=== PATIENT | female | born 1955 | race Caucasian/White ===

== ENCOUNTER → 2016-07-10 | Outpatient (CLI) | payer OTHER | END | disposition home or self-care (01) | LOC: CFH 14:33 | PROVIDERS: ATTEND Internal Medicine Critical Care Medicine | DX: R06.02 Shortness of breath (principal); Z72.0 Tobacco use; Z12.2 Encounter for screening for malignant neoplasm of respiratory organs; R91.1 Solitary pulmonary nodule | CPT/HCPCS: 71020; G0297 ==

== ENCOUNTER → 2016-08-25 | Outpatient (CLI) | payer OTHER | END | disposition home or self-care (01) | LOC: CARD 14:59 | PROVIDERS: ATTEND Internal Medicine Critical Care Medicine | DX: R06.02 Shortness of breath (principal) | CPT/HCPCS: 94060; 94726; 94729 ==

== ENCOUNTER → 2018-06-13 | Outpatient (CLI) | payer MEDICARE | END | disposition home or self-care (01) | LOC: CFH 14:39 | PROVIDERS: ATTEND Registered Nurse | DX: M47.816 Spondylosis without myelopathy or radiculopathy, lumbar region (principal); M48.061 Spinal stenosis, lumbar region without neurogenic claudication | CPT/HCPCS: 72148 ==

== ENCOUNTER → 2018-06-28 | Outpatient (CLI) | payer MEDICARE | END | disposition home or self-care (01) | LOC: CFH 11:57 | PROVIDERS: ATTEND Internal Medicine Critical Care Medicine | DX: Z12.2 Encounter for screening for malignant neoplasm of respiratory organs (principal); I70.90 Unspecified atherosclerosis; R91.1 Solitary pulmonary nodule; F17.210 Nicotine dependence, cigarettes, uncomplicated | CPT/HCPCS: G0297 ==

== ENCOUNTER → 2018-09-27 | Outpatient (CLI) | payer MEDICARE, MEDICAID | END | disposition home or self-care (01) | LOC: CFH 12:21 | PROVIDERS: ATTEND Nurse Practitioner Family | DX: R91.1 Solitary pulmonary nodule (principal) | CPT/HCPCS: 71250 ==

== ENCOUNTER 2018-11-29 10:59 | Outpatient (CLI) | payer MEDICAID, MEDICARE | END 2018-11-29 23:59 | disposition home or self-care (01) | LOC: CFH 10:59 | PROVIDERS: ATTEND Internal Medicine Cardiovascular Disease | DX: I34.0 Nonrheumatic mitral (valve) insufficiency (principal); I10 Essential (primary) hypertension; E10.9 Type 1 diabetes mellitus without complications; F17.210 Nicotine dependence, cigarettes, uncomplicated | CPT/HCPCS: 78452; 93017; 93306; A9502; J2785 ==

== ENCOUNTER 2019-04-06 08:45 | Day surgery (SDC) | payer MEDICARE ==
[2019-04-04 15:41] LABS: BASOPHILS # (AUTO) 0.05 x10^3/uL (0-0.1); BASOPHILS % (AUTO) 1 % (0-1); EOSINOPHILS # (AUTO) 0.34 x10^3/uL (0-0.4); EOSINOPHILS % (AUTO) 6 % (1-7); LYMPHOCYTES # (AUTO) 1.91 x10^3/uL (1-3.4); LYMPHOCYTES % (AUTO) 32 % (22-44); MD NO; MEAN CORPUSCULAR HEMOGLOBIN 31.2 pg (27.0-34.8); MEAN CORPUSCULAR VOLUME 94.3 fL (80-100); MEAN PLATELET VOLUME 7.9 fL (7.4-10.4); MONOCYTES # (AUTO) 0.66 x10^3/uL (0.2-0.8); MONOCYTES % (AUTO) 11 % (2-9); NEUTROPHILS # (AUTO) 2.95 x10^3/uL (1.8-6.8); NEUTROPHILS % (AUTO) 50 % (42-75); PLATELET COUNT 200 x10^3/uL (130-400); RED BLOOD COUNT 4.47 x10^6/uL (3.82-5.3); RED CELL DISTRIBUTION WIDTH 13.4 % (9.6-15.2)
[2019-04-04 15:43] LABS: MICROSCOPIC NOT IND
[2019-04-04 15:46] LABS: CULTURE INDICATED? NO
[2019-04-04 15:46] LABS: ALANINE AMINOTRANSFERASE 71 U/L (12-78); ALBUMIN 3.2 g/dL (3.4-5.0); ANION GAP 7 mmol/L (5-15); CALCIUM 8.8 mg/dL (8.5-10.1); CHLORIDE 104 mmol/L (98-107); CREATININE 0.97 mg/dL (0.55-1.02)
[2019-04-04 15:47] LABS: PROTHROMBIN TIME 10.5 Seconds (9.6-11.5)
[2019-04-04 15:48] LABS: ALKALINE PHOSPHATASE 93 U/L (45-117); BILIRUBIN,TOTAL 0.3 mg/dL (0.2-1.0); TOTAL PROTEIN 6.8 g/dL (6.4-8.2)
[~2019-04-06] VITALS: Ht 163.8 cm; Wt 92.1 kg
[~2019-04-06 08:45] MED LIST: ARMO250T2 PO; ASCO10004 PO; ASPI-496 PO; ATOR-2 PO; BACITRACIN 50,000 UNIT ONE; BUPIVACAINE/PF 0.25% ONE; BUPIVACAINE/PF 0.5% ONE; CALC1CAP8 PO; CARV-39 PO; CYAN1TAB29 PO; EPINEPHRINE 1 MG/ML, 1ML ONE; EYE VITAMINS PO; EZET10TA70 PO; FURO20TA3 PO; GLUC1KIT PO; GLUC500T11 PO; HYDR25TA6 PO; INSU100V14 SC; LEVO50TA5 PO; LISI-170 PO; MULT1TAB60 PO; OMEG1CAP39 PO; POTA10TA5 PO; PREG150C PO; THROMBIN 5,000 UNIT VIAL TP ONE; UBID100C24 PO; VANCOMYCIN 1,000 MG ONE; VENL150T PO; [UNRECOGNIZED DRUG - OTHER] PO
[2019-04-06] MEDS ORDERED: LACTATED RINGERS 1,000 ML IV SCH (09:26)
[2019-04-06 09:30] VITALS: BP 114/65
[2019-04-06] MEDS ORDERED: FENTANYL PF 250 MCG/5ML ONE (09:41)
[2019-04-06] MEDS ORDERED: MIDAZOLAM 1 MG/ML, 2ML ONE (09:41)
[2019-04-06] MEDS ORDERED: PROPOFOL 100 ML ONE (09:42)
[2019-04-06] MEDS ORDERED: ACETAMINOPHEN 500 MG TABLET PO ONE (10:00)
[2019-04-06] MEDS ORDERED: GABAPENTIN 300 MG CAPSULE PO ONE (10:00)
[2019-04-06] MEDS ORDERED: OxyconTIN ER 20 MG TAB.ER PO ONE (10:00)
[2019-04-06] MEDS ORDERED: FAMOTIDINE 20 MG TABLET PO ONE (10:00)
[2019-04-06] MEDS ORDERED: DEXAMETHASONE 4 MG/ML, 1ML ONE (12:24)
[2019-04-06] MEDS ORDERED: CEFAZOLIN 1,000 MG ONE (12:25)
[2019-04-06] MEDS ORDERED: SUCCINYLCHOLINE 20 MG/ML, 10ML ONE (13:37)
[2019-04-06] MEDS ORDERED: PROPOFOL 10 MG/ML, 20ML ONE (13:37)
[2019-04-06] MEDS ORDERED: ROCURONIUM 10MG/ML,5ML ONE (13:37)
[2019-04-06] MEDS ORDERED: ONDANSETRON 2MG/ML, 2ML ONE (13:37)
[2019-04-06] MEDS ORDERED: MEPERIDINE/PF 25MG/ML,1ML IVPush PRN (14:00)
[2019-04-06] MEDS ORDERED: METOPROLOL 1 MG/ML, 5ML IV PRN (14:00)
[2019-04-06] MEDS ORDERED: hydrALAzine 20 MG/ML, 1ML IV PRN (14:00)
[2019-04-06] MEDS ORDERED: ONDANSETRON 2MG/ML, 2ML IV PRN ×2 (14:00→16:30)
[2019-04-06] MEDS ORDERED: PROMETHAZINE 25 MG/ML, 1ML IV PRN (14:00)
[2019-04-06] MEDS ORDERED: OXYcodone 5 MG/5 ML ORAL.SOL UDC PO PRN (14:00)
[2019-04-06] MEDS ORDERED: DIAZEPAM 5 MG/ML, 2ML IVPush PRN (14:00)
[2019-04-06] MEDS ORDERED: HYDROmorphone 2 MG/ML, 1ML IVPush PRN (14:00)
[2019-04-06] MEDS ORDERED: FENTANYL PF 100 MCG/2ML IV PRN (14:00)
[2019-04-06] MEDS ORDERED: BISACODYL 10 MG SUPP PR PRN (16:30)
[2019-04-06] MEDS ORDERED: DIPHENHYDRAMINE 50 MG/ML, 1ML IM PRN (16:30)
[2019-04-06] MEDS ORDERED: HYDROmorphone 2 MG/ML, 1ML IM PRN (16:30)
[2019-04-06] MEDS ORDERED: MAGNESIUM HYDROXIDE 8%, 30ML UDC PO PRN (16:30)
[2019-04-06] MEDS ORDERED: LABETALOL 5MG/ML, 20ML IV PRN (16:30)
[2019-04-06] MEDS ORDERED: HYDROmorphone 2MG TABLET PO PRN (16:30)
[2019-04-06] MEDS ORDERED: OXYcodone/APAP 5/325MG TABLET PO PRN (16:30)
[2019-04-06] MEDS ORDERED: PROMETHAZINE 25 MG/ML, 1ML IM PRN (16:30)
[2019-04-06] MEDS ORDERED: DIPHENHYDRAMINE 25 MG CAPSULE PO PRN (16:30)
[2019-04-06] MEDS ORDERED: OXYcodone IR 5MG TABLET PO PRN (16:30)
[2019-04-06] MEDS ORDERED: DIPHENHYDRAMINE 50 MG/ML, 1ML IVPush PRN (16:30)
[2019-04-06] MEDS ORDERED: NS + 20MEQ KCL 1,000 ML IV SCH (16:30)
[2019-04-06] MEDS ORDERED: INSULIN PUMP NOVOLOG SQ SCH (17:00)
[2019-04-06] MEDS: HYDROcodone/APAP 5/325 TABLET PO PRN (18:50)
[2019-04-06 20:00] VITALS: BP 99/63
[2019-04-06] MEDS: CEFAZOLIN PMX 1GM/50ML 50 ML IVPB SCH (20:03)
[2019-04-06] MEDS: ATORVASTATIN 80 MG TABLET PO SCH (20:44)
[2019-04-06] MEDS: VENLAFAXINE XR 37.5MG CAP.ER.24H PO SCH (20:44)
[2019-04-06] MEDS: PREGABALIN 150 MG CAPSULE PO SCH (20:45)
[2019-04-06] MEDS ORDERED: ZOLPIDEM 5MG TABLET PO PRN (21:00)
[2019-04-07 00:31] VITALS: BP 103/54
[2019-04-07] MEDS: HYDROcodone/APAP 5/325 TABLET PO PRN ×3 (04:09→19:26)
[2019-04-07] MEDS: CEFAZOLIN PMX 1GM/50ML 50 ML IVPB SCH (04:09)
[2019-04-07] MEDS: LEVOTHYROXINE 50 MCG TABLET PO SCH (05:37)
[2019-04-07 05:39] LABS: BASOPHILS # (AUTO) 0.03 x10^3/uL (0-0.1); BASOPHILS % (AUTO) 0 % (0-1); EOSINOPHILS # (AUTO) 0.26 x10^3/uL (0-0.4); EOSINOPHILS % (AUTO) 3 % (1-7); LYMPHOCYTES % (AUTO) 15 % (22-44); MD NO; MEAN CORPUSCULAR HEMOGLOBIN 31.4 pg (27.0-34.8); MEAN CORPUSCULAR HGB CONC 33.2 g/dL (32.4-35.8); MEAN CORPUSCULAR VOLUME 94.7 fL (80-100); MEAN PLATELET VOLUME 8.3 fL (7.4-10.4); MONOCYTES # (AUTO) 0.83 x10^3/uL (0.2-0.8); MONOCYTES % (AUTO) 8 % (2-9); NEUTROPHILS # (AUTO) 7.49 x10^3/uL (1.8-6.8); NEUTROPHILS % (AUTO) 74 % (42-75); PLATELET COUNT 165 x10^3/uL (130-400); RED BLOOD COUNT 3.81 x10^6/uL (3.82-5.3); RED CELL DISTRIBUTION WIDTH 13.1 % (9.6-15.2)
[2019-04-07 05:43] LABS: CALCIUM 8.2 mg/dL (8.5-10.1); CHLORIDE 107 mmol/L (98-107)
[2019-04-07 05:51] LABS: ANION GAP 4 mmol/L (5-15); CREATININE 0.91 mg/dL (0.55-1.02)
[2019-04-07] MEDS ORDERED: GLUCAGON 1 MG IM ONE ×2 (06:00→08:30)
[2019-04-07 08:40] VITALS: BP 95/58
[2019-04-07] MEDS: LISINOPRIL 20 MG TABLET PO SCH (09:00)
[2019-04-07] MEDS ORDERED: EZETIMIBE 10 MG TABLET PO SCH (09:00)
[2019-04-07] MEDS: ARMODAFINIL 250 MG HOMEMEDPO SCH ×2 (09:00→10:49)
[2019-04-07] MEDS: HYDROCHLOROTHIAZIDE 25 MG TABLET PO SCH (09:00)
[2019-04-07] MEDS: FUROSEMIDE 20 MG TABLET PO SCH (09:12)
[2019-04-07] MEDS: PREGABALIN 150 MG CAPSULE PO SCH ×3 (09:13→20:17)
[2019-04-07] MEDS: SENNA/DOCUSATE TABLET PO SCH (09:13)
[2019-04-07] MEDS: MULTIVITAMIN 1 TABLET PO SCH (09:13)
[2019-04-07] MEDS: VENLAFAXINE XR 37.5MG CAP.ER.24H PO SCH ×2 (09:13→20:17)
[2019-04-07] MEDS: METHOCARBAMOL 750 MG TABLET PO PRN ×2 (09:13→20:16)
[2019-04-07] MEDS: CARVEDILOL 12.5 MG TABLET PO SCH (09:13)
[2019-04-07] MEDS ORDERED: GLUCAGON 1 MG IM PRN (10:00)
[2019-04-07] MEDS: CEFAZOLIN PMX 1GM/50ML 50 ML IV SCH ×2 (12:00→20:16)
[2019-04-07] MEDS: ASCORBIC ACID 500 MG TABLET PO SCH (12:01)
[2019-04-07] MEDS: POTASSIUM CHLORIDE 10 MEQ TABLET.ER PO SCH (12:01)
[2019-04-07] MEDS: CALCIUM/VITAMIN D3 250-125 TABLET PO SCH (12:01)
[2019-04-07] MEDS: OMEGA-3/FISH OIL CAPSULE PO SCH (12:01)
[2019-04-07 14:08] VITALS: BP 100/58
[2019-04-07] MEDS: ENOXAPARIN 40 MG/0.4 ML SQ SCH (15:24)
[2019-04-07 18:52] VITALS: BP 110/68
[2019-04-07] MEDS: ATORVASTATIN 80 MG TABLET PO SCH (20:17)
[2019-04-08 00:01] VITALS: BP 111/68
[2019-04-08] MEDS: CEFAZOLIN PMX 1GM/50ML 50 ML IV SCH (04:18)
[2019-04-08] MEDS: HYDROcodone/APAP 5/325 TABLET PO PRN ×2 (04:22→12:12)
[2019-04-08 05:36] LABS: BASOPHILS # (AUTO) 0.07 x10^3/uL (0-0.1); BASOPHILS % (AUTO) 1 % (0-1); EOSINOPHILS # (AUTO) 0.28 x10^3/uL (0-0.4); EOSINOPHILS % (AUTO) 3 % (1-7); LYMPHOCYTES # (AUTO) 2.36 x10^3/uL (1-3.4); LYMPHOCYTES % (AUTO) 27 % (22-44); MD NO; MEAN CORPUSCULAR HEMOGLOBIN 31.1 pg (27.0-34.8); MEAN CORPUSCULAR VOLUME 94.2 fL (80-100); MEAN PLATELET VOLUME 8.2 fL (7.4-10.4); MONOCYTES # (AUTO) 1.09 x10^3/uL (0.2-0.8); MONOCYTES % (AUTO) 13 % (2-9); NEUTROPHILS # (AUTO) 4.86 x10^3/uL (1.8-6.8); NEUTROPHILS % (AUTO) 56 % (42-75); PLATELET COUNT 163 x10^3/uL (130-400); RED BLOOD COUNT 3.73 x10^6/uL (3.82-5.3)
[2019-04-08] MEDS: LEVOTHYROXINE 50 MCG TABLET PO SCH (06:11)
[2019-04-08 07:16] VITALS: BP 118/69
[2019-04-08] MEDS: ARMODAFINIL 250 MG HOMEMEDPO SCH (08:02)
[2019-04-08] MEDS: PREGABALIN 150 MG CAPSULE PO SCH (08:04)
[2019-04-08] MEDS: MULTIVITAMIN 1 TABLET PO SCH (08:04)
[2019-04-08] MEDS: METHOCARBAMOL 750 MG TABLET PO PRN (08:04)
[2019-04-08] MEDS: CARVEDILOL 12.5 MG TABLET PO SCH (08:04)
[2019-04-08] MEDS: VENLAFAXINE XR 37.5MG CAP.ER.24H PO SCH (08:04)
[2019-04-08] MEDS: SENNA/DOCUSATE TABLET PO SCH (08:04)
[2019-04-08] MEDS: HYDROCHLOROTHIAZIDE 25 MG TABLET PO SCH (08:04)
[2019-04-08] MEDS: LISINOPRIL 20 MG TABLET PO SCH (08:05)
[2019-04-08] MEDS: FUROSEMIDE 20 MG TABLET PO SCH (08:05)
[2019-04-08] MEDS ORDERED: HYDR-3240 PO (09:54)
[2019-04-08] MEDS ORDERED: METH750T87 PO (09:55)
[2019-04-08] MEDS ORDERED: CEPH-368 PO (09:55)
[2019-04-08] MEDS: OMEGA-3/FISH OIL CAPSULE PO SCH (12:10)
[2019-04-08] MEDS: CALCIUM/VITAMIN D3 250-125 TABLET PO SCH (12:10)
[2019-04-08] MEDS: POTASSIUM CHLORIDE 10 MEQ TABLET.ER PO SCH (12:10)
[2019-04-08] MEDS: ASCORBIC ACID 500 MG TABLET PO SCH (12:10)
[2019-04-08 13:28] VITALS: BP 103/63
[2019-04-08 15:20] VITALS: BP 108/67
[2019-04-08] MEDS: ENOXAPARIN 40 MG/0.4 ML SQ SCH (15:30)
== END 2019-04-08 15:55 | disposition home or self-care (01) ==
LOC: OUT 08:45 → EDSTATUS 11:00 → 4NE 15:48 → UNDOADMIN 15:54 → 4NE 15:54 → OUT 16:16 → 4NE 04-08 15:35 → DCLOUNGE 04-08 15:35 → UNDODISIN 04-08 15:55 → OUT 04-08 15:55
PROVIDERS: ATTEND Neurological Surgery
DX: M47.26 Other spondylosis with radiculopathy, lumbar region (principal); M48.062 Spinal stenosis, lumbar region with neurogenic claudication; M51.16 Intervertebral disc disorders with radiculopathy, lumbar region; M71.38 Other bursal cyst, other site; E66.9 Obesity, unspecified; E11.9 Type 2 diabetes mellitus without complications; G47.33 Obstructive sleep apnea (adult) (pediatric); F32.9 Major depressive disorder, single episode, unspecified; F17.210 Nicotine dependence, cigarettes, uncomplicated; Z68.33 Body mass index [BMI] 33.0-33.9, adult; Z79.01 Long term (current) use of anticoagulants; Z79.899 Other long term (current) drug therapy; Z82.49 Family history of ischemic heart disease and other diseases of the circulatory system; Z83.3 Family history of diabetes mellitus; Z82.5 Family history of asthma and other chronic lower respiratory diseases
CPT/HCPCS: 36415; 63030; 71046; 72100; 80048; 80053; 81003; 82962; 85025; 85610; 85730; 93005; 97161; 97166; C1729; J0171; J0330; J0690; J1100; J1170; J1650; J2250; J2405; J2704; J3010; J3480; J3490; G0378; J3370

== ENCOUNTER → 2020-01-31 | Outpatient (CLI) | payer MEDICARE ==
[~2020-01-31] MED LIST changes: +ASCO100018 PO; -ASCO10004 PO; -BACITRACIN 50,000 UNIT ONE; -BUPIVACAINE/PF 0.25% ONE; -BUPIVACAINE/PF 0.5% ONE; +CEPH-368 PO; -EPINEPHRINE 1 MG/ML, 1ML ONE; +HYDR-3240 PO; +METH750T87 PO; +MULT-449 PO; -MULT1TAB60 PO; -THROMBIN 5,000 UNIT VIAL TP ONE; -VANCOMYCIN 1,000 MG ONE
== END | disposition home or self-care (01) ==
LOC: CFH 12:05
PROVIDERS: ATTEND Family Medicine
DX: Z12.31 Encounter for screening mammogram for malignant neoplasm of breast (principal)
CPT/HCPCS: 77063; 77067

== ENCOUNTER → 2020-11-15 | Outpatient (CLI) | payer MEDICARE ==
[~2020-11-15] MED LIST changes: +HYDR-2214 PO; -HYDR-3240 PO
== END | disposition home or self-care (01) ==
LOC: CFH 12:16
PROVIDERS: ATTEND Internal Medicine Cardiovascular Disease
DX: I10 Essential (primary) hypertension (principal); R06.02 Shortness of breath
CPT/HCPCS: 78452; 93017; 93306; 93356; A9502

== ENCOUNTER 2020-12-12 13:58 | Emergency (ER) | payer MEDICARE ==
[~2020-12-12] VITALS: Ht 165.1 cm; Wt 108.8 kg
[2020-12-12 14:17] VITALS: BP 141/56
[2020-12-12 14:53] LABS: BASOPHILS % (AUTO) 1 % (0-1); EOSINOPHILS % (AUTO) 6 % (1-7); LYMPHOCYTES % (AUTO) 28 % (22-44); MEAN CORPUSCULAR HEMOGLOBIN 30.3 pg (27.0-34.8); MEAN CORPUSCULAR HGB CONC 33.9 g/dL (32.4-35.8); MEAN PLATELET VOLUME 7.5 fL (7.4-10.4); MONOCYTES % (AUTO) 10 % (2-9); NEUTROPHILS % (AUTO) 56 % (42-75); PLATELET COUNT 218 x10^3/uL (130-400); RED CELL DISTRIBUTION WIDTH 12.8 % (9.6-15.2)
[2020-12-12 14:56] LABS: ALBUMIN 3.2 g/dL (3.4-5.0); ANION GAP 6 mmol/L (5-15); CALCIUM 9.5 mg/dL (8.5-10.1); CHLORIDE 103 mmol/L (98-107)
[2020-12-12 15:06] LABS: ALANINE AMINOTRANSFERASE 47 U/L (12-78); ALKALINE PHOSPHATASE 138 U/L (45-117); BILIRUBIN,TOTAL 0.3 mg/dL (0.2-1.0); CREATININE 1.02 mg/dL (0.55-1.02)
--- NOTE | 2020-12-12 15:08 | NUR ---
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 UA COLLECTED AND SENT TO LAB.
[2020-12-12 15:14] LABS: MICROSCOPIC NOT IND
--- NOTE | 2020-12-12 17:01 | NUR ---
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
[2020-12-12] MEDS ORDERED: HYDROcodone/APAP 5/325 TABLET PO ONE (18:30)
[2020-12-12] MEDS ORDERED: HYDROcodone/APAP 5/325 TABLET ONE (18:48)
--- NOTE | 2020-12-12 18:51 | NUR ---
CARE ASSUMED FROM JOSE FRANCISCO MURPHY. FIRST CONTACT WITH PT. NADN. HUTSON.
== END 2020-12-12 19:04 | disposition home or self-care (01) ==
LOC: ED 18:45
DX: M54.5 Low back pain (principal); G89.29 Other chronic pain; E11.9 Type 2 diabetes mellitus without complications
CPT/HCPCS: 36415; 80053; 81003; 85025; 99283